=== PATIENT | male | born 1965 | race Hispanic/Latino ===

== ENCOUNTER → 2025-05-19 | Outpatient (CLI) | payer OTHER ==
--- NOTE | 2025-05-20 07:45 | HMCIMG ---
EXAM: CT Cardiac calcium scoring. CLINICAL HISTORY: Screening. TECHNIQUE: Thin collimated axial CT cardiac images were obtained. A CT scan is done according to ALARA (As Low As Reasonably Achievable). CONTRAST: None. COMPARISON: None provided. FINDINGS: Calcium Score: VESSEL Number of lesions Volume mm3 Equi. Mass/mg Calcium score LM 2 15.4 - 23.0 LAD 13 1454.6 - 1960.8 LCX 4 645.3 - 881.0 RCA 30 1051.6 - 1227.0 Total 49 3166.9 - 4091.8 IMPRESSION: The total calcium score is 4091.8. This corresponds to the 99th percentile. /Mcgregor
== END | disposition home or self-care (01) ==
LOC: RAH 15:05
PROVIDERS: ATTEND Nurse Practitioner Family
DX: Z13.6 Encounter for screening for cardiovascular disorders (principal)
CPT/HCPCS: 75571